=== PATIENT | female | born 1980 | race Caucasian/White ===

== ENCOUNTER 2021-04-05 22:26 | Emergency (ER) | payer OTHER, SELFPAY ==
[~2021-04-05] VITALS: Ht 149.9 cm; Wt 86.3 kg
[2021-04-05 22:31] VITALS: BP 157/101
[2021-04-05 23:26] LABS: BASOPHILS % (AUTO) 0 % (0-1); EOSINOPHILS % (AUTO) 3 % (1-7); LYMPHOCYTES % (AUTO) 45 % (22-44); MEAN CORPUSCULAR HEMOGLOBIN 27.9 pg (27.0-34.8); MEAN CORPUSCULAR HGB CONC 33.8 g/dL (32.4-35.8); MEAN PLATELET VOLUME 8.4 fL (7.4-10.4); MONOCYTES % (AUTO) 8 % (2-9); NEUTROPHILS % (AUTO) 44 % (42-75); PLATELET COUNT 257 x10^3/uL (130-400); RED BLOOD COUNT 4.84 x10^6/uL (3.82-5.3); RED CELL DISTRIBUTION WIDTH 14.8 % (9.6-15.2)
[2021-04-05 23:28] LABS: MD NO
[2021-04-05 23:40] LABS: ANION GAP 5 mmol/L (5-15); CHLORIDE 107 mmol/L (98-107)
[2021-04-05 23:41] LABS: CREATININE 0.83 mg/dL (0.55-1.02)
--- NOTE | 2021-04-06 00:53 | NUR ---
TASK RN: PT C/O L FLANK PAIN, PT REPORTS FINISHING ABX FOR UTI/ KIDNEY INFECTION SUNDAY AND PAIN RETURNED SUNDAY. PT WAS SEEN AT TODAY AND TOLD HER URINE CAME BACK CLEAN. PT RESTING ON GURNEY AT BEDSIDE, URINE SENT TO LAB.
[2021-04-06] MEDS ORDERED: KETOROLAC 30 MG/1 ML ONE (00:58)
[2021-04-06] MEDS ORDERED: KETOROLAC 30 MG/1 ML IM ONE (01:00)
--- NOTE | 2021-04-06 01:01 | NUR ---
PT MEDICATED PER JAN 07 RIGHTS VERIFIED
[2021-04-06 01:11] LABS: HCG UR SG 1.013 (1.003-1.030); MICROSCOPIC AUTO
--- NOTE | 2021-04-06 01:44 | NUR ---
1ST CONTACT C PT. RESTING ON CART IN NAD. STATES +RELIEF C TORADOL. AMBULATORY TO RESTROOM C STEADY GAIT. AWARE OF PENDING CT REPORT. WILL CTM.
[2021-04-06] MEDS ORDERED: CEFDINIR 300 MG CAPSULE ONE (02:37)
[2021-04-06] MEDS ORDERED: CEFDINIR 300 MG CAPSULE PO ONE (03:00)
== END 2021-04-06 02:47 | disposition home or self-care (01) ==
LOC: ED 22:50
DX: N10 Acute pyelonephritis (principal); N20.0 Calculus of kidney; R10.32 Left lower quadrant pain
CPT/HCPCS: 36415; 74176; 80048; 81001; 81025; 85025; 87086; 96372; 99284; J1885; 87077